=== PATIENT | female | born 1995 | race Two or more races ===

== ENCOUNTER 2021-03-16 13:59 | Inpatient (IN) | payer OTHER, BC ==
[~2021-03-16 13:59] MED LIST: Iopamidol-370 76% 500 ML 1 ML ONE
[2021-03-16] MEDS ORDERED: Ondansetron PF 4 MG/2 ML Vial ONE ×2 (14:06→15:19)
[2021-03-16] MEDS ORDERED: Morphine 4 MG/ML VIAL ONE (14:06)
[2021-03-16 14:32] LABS: Hemoglobin 13.5 g/dL (12.0-16.0); Mean Corpuscular HGB CONC 33.1 g/dL (32.0-36.0); Mean Corpuscular Hemoglobin 34.1 pg (27.0-31.0); Mean Platelet Volume 6.7 fL (7.4-10.4); Platelet Count 345 thou/uL (130-400); RBC Distribution Width 12.2 % (11.5-14.5); Red Blood Cell (RBC) Count 3.98 mill/uL (4.20-5.40)
[2021-03-16 14:41] LABS: BHCG - Serum Negative (NEGATIVE); Pregs Control Background? CLEAR/WHITE (CLR/WHITE); Pregs Control Bar Appear? YES (CONTROL BAR)
[2021-03-16 14:45] LABS: ALT (SGPT) 42 U/L (8-55); AST (SGOT) 70 U/L (5-34); Albumin 4.1 g/dL (3.5-5.0); Alkaline Phosphatase 77 U/L (40-110); Anion Gap 11 mmol/L (10-20); BUN (Urea Nitrogen) 12 mg/dL (7.0-18.7); Bilirubin, Total 0.7 mg/dL (0.2-1.2); Calc. Creatinine Clearance 0 mL/min (70-130); Calcium 9.2 mg/dL (7.8-10.44); Carbon Dioxide 24 mmol/L (22-29); Chloride 107 mmol/L (98-107); Globulin 3.4 g/dL (2.4-3.5); Glucose 115 mg/dL (70-105); Potassium 3.8 mmol/L (3.5-5.1); Protein, Total 7.5 g/dL (6.0-8.3); Sodium 138 mmol/L (136-145)
[2021-03-16 14:47] LABS: INR-International Normal Ratio 1.1; PTT 24.2 sec (22.9-36.1); Prothrombin Time 14.7 sec (12.0-14.7)
[2021-03-16 14:50] LABS: Band 30 % (5-11); Lymphocytes 8 % (21-51); MDiff Complete? YES; Monocytes 9 % (0-10); Neutrophil 49 % (42-75); Platelet Morphology Comment Appears Adequate; RBC Morphology Normal; Reactive Lymphocytes 4 % (0-10)
[2021-03-16] MEDS ORDERED: Ketorolac Tromethamine 30 MG/ML VIAL ONE ×2 (15:21→17:24)
[2021-03-16] MEDS ORDERED: hydrALAZINE 20 MG/ML VIAL SLOW IVP PRN (16:53)
[2021-03-16] MEDS ORDERED: Dextrose 5% in Water 1,000 ML IV PRN (16:53)
[2021-03-16] MEDS ORDERED: Lorazepam 2 MG/ML VIAL SLOW IVP PRN (16:53)
[2021-03-16] MEDS ORDERED: Dextrose 50% Abboject 50 ML SYRINGE SLOW IVP PRN (16:53)
[2021-03-16] MEDS ORDERED: Ondansetron PF 4 MG/2 ML Vial IVP PRN (16:53)
[2021-03-16] MEDS ORDERED: Cyclobenzaprine 10 MG TAB PO PRN (16:55)
[2021-03-16] MEDS ORDERED: traMADol HCl 50 MG TAB PO PRN (16:55)
[2021-03-16 17:50] LABS: #Lymphocytes 1.1 thou/uL (1.20-3.40); #Monocytes 1.1 thou/uL (0.11-0.59); #Neutrophils 16.1 thou/uL (1.40-6.50); %Basophils 0.1 % (0.0-1.0); %Eosinophils 0.2 % (0.0-10.0); %Monocytes 5.7 % (0.0-10.0); Hemoglobin 13.2 g/dL (12.0-16.0); Mean Corpuscular HGB CONC 32.2 g/dL (32.0-36.0); Mean Corpuscular Hemoglobin 33.2 pg (27.0-31.0); Mean Platelet Volume 6.5 fL (7.4-10.4); Platelet Count 311 thou/uL (130-400); RBC Distribution Width 12.2 % (11.5-14.5); Red Blood Cell (RBC) Count 3.96 mill/uL (4.20-5.40); White Blood Cell (WBC) Count 18.3 thou/uL (4.8-10.8)
[2021-03-16 18:00] VITALS: BMI 32.6
[2021-03-16 18:12] LABS: Anion Gap 12 mmol/L (10-20); BUN (Urea Nitrogen) 11 mg/dL (7.0-18.7); Calc. Creatinine Clearance 173 mL/min (70-130); Carbon Dioxide 23 mmol/L (22-29); Chloride 107 mmol/L (98-107); Glucose 105 mg/dL (70-105); Potassium 3.8 mmol/L (3.5-5.1); Sodium 138 mmol/L (136-145)
[2021-03-16] MEDS ORDERED: Morphine 4 MG/ML VIAL SLOW IVP PRN (18:19)
[2021-03-16] MEDS: Acetaminophen 500 MG TAB PO SCH (18:19)
[2021-03-16] MEDS: traMADol HCl 50 MG TAB PO SCH (18:20)
[2021-03-16] MEDS: Ibuprofen 200 MG TAB PO SCH (18:23)
[2021-03-16] MEDS ORDERED: Promethazine HCl 12.5 MG in Sodium Chloride 0.9% 50 ML IVPB PRN (19:04)
[2021-03-16] MEDS: Gabapentin 300 MG CAP PO SCH (19:46)
[2021-03-16] MEDS: Famotidine/PF 20 mg/2ml Vial SLOW IVP SCH (19:46)
[2021-03-16] MEDS: Senokot S 8.6-50 MG TAB PO SCH (19:46)
[2021-03-16] MEDS: Scopolamine 1.5 mg/72 hour Patch TD SCH (19:46)
[2021-03-17] MEDS: traMADol HCl 50 MG TAB PO SCH ×5 (00:06→23:09)
[2021-03-17] MEDS: Acetaminophen 500 MG TAB PO SCH ×5 (00:06→23:08)
[2021-03-17] MEDS: Ibuprofen 200 MG TAB PO SCH ×4 (02:09→18:21)
[2021-03-17 05:24] LABS: #Basophils 0.1 thou/uL (0.0-0.2); #Eosinphils 0.1 thou/uL (0.0-0.7); #Lymphocytes 2.6 thou/uL (1.20-3.40); #Monocytes 0.9 thou/uL (0.11-0.59); #Neutrophils 6.2 thou/uL (1.40-6.50); %Basophils 0.6 % (0.0-1.0); %Eosinophils 1.3 % (0.0-10.0); %Lymphocytes 26.2 % (21.0-51.0); %Monocytes 9.5 % (0.0-10.0); %Neutrophils 62.5 % (42.0-75.0); Hemoglobin 11.8 g/dL (12.0-16.0); Mean Corpuscular HGB CONC 33.2 g/dL (32.0-36.0); Mean Corpuscular Hemoglobin 34.4 pg (27.0-31.0); Mean Platelet Volume 6.5 fL (7.4-10.4); Platelet Count 288 thou/uL (130-400); RBC Distribution Width 12.3 % (11.5-14.5); Red Blood Cell (RBC) Count 3.44 mill/uL (4.20-5.40); White Blood Cell (WBC) Count 9.9 thou/uL (4.8-10.8)
[2021-03-17 05:41] LABS: Anion Gap 11 mmol/L (10-20); BUN (Urea Nitrogen) 13 mg/dL (7.0-18.7); Calc. Creatinine Clearance 162 mL/min (70-130); Calcium 8.4 mg/dL (7.8-10.44); Carbon Dioxide 24 mmol/L (22-29); Chloride 108 mmol/L (98-107); Glucose 86 mg/dL (70-105); Magnesium 1.8 mg/dL (1.6-2.6); Phosphorus 4.1 mg/dL (2.3-4.7); Potassium 3.9 mmol/L (3.5-5.1); Sodium 139 mmol/L (136-145)
[2021-03-17] MEDS ORDERED: Magnesium Sulfate 2 GM in Sodium Chloride 0.9% 100 ML IV SCH (08:00)
[2021-03-17] MEDS ORDERED: Magnesium 2 GM/50 ML 2 GM in Premix Bag 1 BAG IVPB SCH (08:00)
[2021-03-17] MEDS: Gabapentin 300 MG CAP PO SCH ×3 (08:42→20:53)
[2021-03-17] MEDS: Senokot S 8.6-50 MG TAB PO SCH ×2 (08:43→20:53)
[2021-03-17] MEDS: Bupropion 100 MG SR TAB PO SCH (08:43)
[2021-03-17] MEDS: Famotidine/PF 20 mg/2ml Vial SLOW IVP SCH ×2 (08:43→20:51)
[2021-03-17] MEDS: Polyethylene Glycol 3350 17 GM Packet PO SCH (08:44)
[2021-03-17 12:08] LABS: SARS-CoV-2 PCR by NAA Not Detected (NotDetected)
[2021-03-18] MEDS: Ibuprofen 200 MG TAB PO SCH ×3 (02:53→18:16)
[2021-03-18] MEDS: Acetaminophen 500 MG TAB PO SCH ×3 (05:32→18:17)
[2021-03-18] MEDS: traMADol HCl 50 MG TAB PO SCH ×4 (05:33→20:31)
[2021-03-18] MEDS: Bupropion 100 MG SR TAB PO SCH (09:20)
[2021-03-18] MEDS: Polyethylene Glycol 3350 17 GM Packet PO SCH (09:20)
[2021-03-18] MEDS: Gabapentin 300 MG CAP PO SCH ×3 (09:20→20:30)
[2021-03-18] MEDS: Senokot S 8.6-50 MG TAB PO SCH ×2 (09:20→20:30)
[2021-03-18] MEDS ORDERED: Ketorolac Tromethamine 30 MG/ML VIAL IVP SCH ×2 (12:00)
[2021-03-18] MEDS: Enoxaparin Sodium 40 MG/0.4 ML SYRINGE SC SCH (20:30)
[2021-03-19] MEDS: Acetaminophen 500 MG TAB PO SCH ×5 (01:00→22:41)
[2021-03-19] MEDS: Ibuprofen 200 MG TAB PO SCH ×3 (02:27→17:24)
[2021-03-19] MEDS: traMADol HCl 50 MG TAB PO SCH ×4 (04:16→22:40)
[2021-03-19] MEDS: Gabapentin 300 MG CAP PO SCH ×3 (09:10→21:44)
[2021-03-19] MEDS: Senokot S 8.6-50 MG TAB PO SCH ×2 (09:10→21:41)
[2021-03-19] MEDS: Bupropion 100 MG SR TAB PO SCH (09:11)
[2021-03-19] MEDS: Polyethylene Glycol 3350 17 GM Packet PO SCH (09:12)
[2021-03-19] MEDS: Acetaminophen/Codeine 30-300mg Tablet PO SCH ×3 (11:03→22:39)
[2021-03-19] MEDS: Cyclobenzaprine 10 MG TAB PO SCH (21:42)
[2021-03-19] MEDS: Scopolamine 1.5 mg/72 hour Patch TD SCH (21:42)
[2021-03-19] MEDS: Enoxaparin Sodium 40 MG/0.4 ML SYRINGE SC SCH (21:44)
[2021-03-20] MEDS: Ibuprofen 200 MG TAB PO SCH ×3 (02:51→19:31)
[2021-03-20] MEDS: traMADol HCl 50 MG TAB PO SCH ×4 (04:46→22:37)
[2021-03-20] MEDS: Acetaminophen/Codeine 30-300mg Tablet PO SCH ×4 (04:47→22:44)
[2021-03-20] MEDS: Acetaminophen 500 MG TAB PO SCH ×2 (05:26→13:55)
[2021-03-20] MEDS: Polyethylene Glycol 3350 17 GM Packet PO SCH (09:53)
[2021-03-20] MEDS: Senokot S 8.6-50 MG TAB PO SCH ×2 (09:53→19:29)
[2021-03-20] MEDS: Bupropion 100 MG SR TAB PO SCH (09:53)
[2021-03-20] MEDS: Gabapentin 300 MG CAP PO SCH ×3 (09:55→19:29)
[2021-03-20] MEDS ORDERED: Sodium Chloride 0.9% 500 ML IV SCH (10:45)
[2021-03-20] MEDS: Acetaminophen 325 MG TAB PO SCH ×2 (13:52→19:30)
[2021-03-20] MEDS: Cyclobenzaprine 10 MG TAB PO SCH (19:30)
[2021-03-20] MEDS: Enoxaparin Sodium 40 MG/0.4 ML SYRINGE SC SCH (19:33)
[2021-03-21] MEDS: Acetaminophen 325 MG TAB PO SCH ×3 (00:21→14:17)
[2021-03-21] MEDS: Ibuprofen 200 MG TAB PO SCH ×4 (01:16→17:48)
[2021-03-21] MEDS: Acetaminophen/Codeine 30-300mg Tablet PO SCH ×3 (04:55→15:42)
[2021-03-21] MEDS: traMADol HCl 50 MG TAB PO SCH ×3 (04:56→15:41)
[2021-03-21] MEDS: Bupropion 100 MG SR TAB PO SCH (08:30)
[2021-03-21] MEDS: Senokot S 8.6-50 MG TAB PO SCH (08:30)
[2021-03-21] MEDS: Gabapentin 300 MG CAP PO SCH ×2 (08:30→14:17)
[2021-03-21] MEDS: Polyethylene Glycol 3350 17 GM Packet PO SCH (08:31)
[2021-03-21 17:37] VITALS: BP 108/73; TEMP 98
== END 2021-03-21 19:17 | disposition home or self-care (01) | DRG 964 ==
LOC: ERS 13:59 → SJJU 16:53
PROVIDERS: ADMIT Surgery; ATTEND Surgery
DX: S27.0XXA Traumatic pneumothorax, initial encounter (principal); S32.491A Other specified fracture of right acetabulum, initial encounter for closed fracture; S22.42XA Multiple fractures of ribs, left side, initial encounter for closed fracture; S32.499A Other specified fracture of unspecified acetabulum, initial encounter for closed fracture; Z20.822 Contact with and (suspected) exposure to COVID-19; F41.9 Anxiety disorder, unspecified; F43.10 Post-traumatic stress disorder, unspecified; V43.62XA Car passenger injured in collision with other type car in traffic accident, initial encounter
CPT/HCPCS: 36415; 70450; 71045; 71260; 72125; 72170; 74177; 80048; 80053; 83735; 84100; 84484; 84703; 85025; 85610; 85730; 86850; 86900; 86901; 93005; 96374; 96375; 96376; G0390; J1650; J1885; J2270; J2405; J3475; J7030; Q9967; S0028; U0003; U0005